=== PATIENT | female | born 1960 | race Caucasian/White ===

== ENCOUNTER 2022-12-27 10:53 | Outpatient (REF) | payer OTHER, SELFPAY ==
[2022-12-27 12:51] LABS: Erythrocyte Sedimentation Rate 20 MM/HR (0-20)
== END 2022-12-27 10:54 | disposition home or self-care (01) ==
LOC: HO.LAB 10:53
PROVIDERS: PCP Internal Medicine; Visit Provider Psychiatry & Neurology Neurology
DX: G43.009 Migraine without aura, not intractable, without status migrainosus (principal)
CPT/HCPCS: 36415; 85652

== ENCOUNTER 2025-04-09 10:19 | Outpatient (AMB) | payer OTHER, SELFPAY ==
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
--- OUTSIDE RECORDS SUMMARY | 2025-04-09 11:49 | XMS_ITS | Clinical Summary ---
Demographics Address [address] [place] [address] Mobile Phone Home Phone Phone Home Phone Work Phone Email Address Preferred Language en Marital Status Single Yazdanism Affiliation Unknown Race White Ethnic Group Not or Lati no Author Organization [address] Address [address] [place] [phone] Phone Care Team Providers Care Manager Employment Name Role Phone Marisol Soto MD Primary Care Provider Allergies Active Allergy Reactions Criticality Noted Date Comments Lisinopril 02/06/2019 Other 01/07/2014 Penicillins Anaphylaxis High 05/04/2009 Medications acetaminophen (TYLENOL 8 HOUR) 650 mg 8 hr tablet Take 1 Tablet by mouth every 8 hours as needed for Pain. 4 Active albuterol HFA (PROAIR HFA ; PROVENTIL HFA ; VENTOLIN HFA) 90 mcg/actuation inhaler Inhale 2 Puffs into the lungs every 4 hours as needed for Cough or Wheezing. 4 Active cyclobenzaprine (FLEXERIL) 10 mg tablet Take 1 Tablet by mouth 3 times daily as needed for Muscle spasms. 2 Active diclofenac (VOLTAREN) 1 % topical gel Apply 4 g topically 2 times daily as needed (right shoulder pain). 4 Active diclofenac (VOLTAREN) 25 mg EC tablet Take 1 Tablet by mouth 2 times daily. 4 Active fluticasone propionate (FLONASE) 50 mcg/actuation nasal spray 2 Sprays by Each Nare route daily. 4 Active sodium chloride (AYR) 0.65 % nasal drops 1 [place] by Nasal route as needed for Congestion. 4 Active SUMAtriptan (IMITREX) 50 mg tablet TAKE 1 TABLET BY MOUTH EVERY DAY NEEDED (AT LEAST 2 HOURS BETWEEN DOSES) 4 Active topiramate (TOPAMAX) 25 mg tablet TAKE 1 TABLET BY MOUTH EVERY DAY FOR 90 DAYS 3 Active blood glucose control high,low (FreeStyle Control) solution USE TO TEST BLOOD SUGARS DAILY 8 Active freestyle 28 gauge lancets Use to test blood sugar once daily 2 Active FREESTYLE LANCETS MISC To check sugars once daily E11.9 4 Active flash glucose scanning reader (FreeStyle Michael 2 Gold Bar) misc 1 Device by Does not apply route continuous. 3 Active blood sugar diagnostic (FreeStyle Lite Strips) test strip TEST BLOOD SUGAR ONCE DAILY 4 Active flash glucose sensor (FREESTYLE MICHAEL 2 SENSOR MISC) 1 Each by Does not apply route every 14 days. 3 Active BD Althea 2nd Gen Pen Needle 32 gauge x 5/32 needle USE TO INJECT INSULIN ONCE DAILY 100 each 2 4 Active metFORMIN (GLUCOPHAGE) 500 mg tabletIndications: Type 2 diabetes mellitus without complications ([facility] V24, [facility] V28) Take 2 tablets (1,000 mg total) by mouth 2 (two) times a day with meals. 360 tablet 1 5 Active loperamide (IMODIUM A-D) 2 mg tablet Take 1 tablet (2 mg total) by mouth if needed. 4 Active montelukast (SINGULAIR) 10 mg tablet Take 1 tablet (10 mg total) by mouth at bedtime. 90 tablet 1 5 Active indapamide (LOZOL) 2.5 mg tablet Take 1 tablet (2.5 mg total) by mouth 1 (one) time each day in the morning. 90 tablet 1 5 Active Lantus Solostar U-100 Insulin 100 unit/mL (3 mL) injection pen INJECT 34 UNITS AT BEDTIME DAILY 30 mL 2 04/04/202 5 Active loratadine (CLARITIN) 10 mg tablet Take 1 tablet (10 mg total) by mouth 1 (one) time each day if needed for allergies. 90 tablet 1 5 Active pantoprazole (PROTONIX) 20 mg EC tablet TAKE 1 TABLET BY MOUTH EVERY DAY BEFORE BREAKFAST 90 tablet 1 5 Active atorvastatin (LIPITOR) 20 mg tablet TAKE 1 TABLET (20 MG TOTAL) BY MOUTH ONE TIME EACH DAY 90 tablet 1 5 Active budesonide-formote roL (Symbicort) 80-4.5 mcg/actuation inhaler INHALE 2 PUFFS BY MOUTH TWICE A DAY (RINSE MOUTH WITH WATER AFTER USE) 8.4 g 2 5 Active dulaglutide (Trulicity) 4.5 mg/0.5 mL pen injector injection Use 4.5mg once weekly 2 mL 5 5 Active Active Problems Problem Noted Date Diagnosed Date Class 3 severe obesity due t o excess calories with serious comorbidity and body mass index (BMI) of 45.0 to 49.9 in adult ([facility] V24, [facility] V28) 07/01/2024 Lump of skin of left upper extremity 11/29/2023 Seasonal allergies 11/29/2023 Mixed hyperlipidemia 11/29/2023 Chronic right shoulder pain 08/30/2023 Mild intermittent asthma without complication COVID-19 10/10/2022 Migraine without status migrainosus, not intract able 09/19/2022 Hypertriglyceridemia 09/19/2022 AMANDA (obstructive sleep apnea) 07/01/2021 Overview (05/22/2024): [facility] Home Sleep Apnea Test: Date 05/17/2021; Wt 300#; BMI 50; JUAN DAVID (AHI) 11, AI 4; HI 7; Unclassified apneas 0; Obstructive apneas 20; Central apneas 0; Mixed apneas 0; hypopneas 39; average oxygen saturation 93% (lowest 69% with saturations <88% for 5% or more of study) - Obstructive Sleep Apnea - mild; mostly hypopneas and obstructive apneas; with sleep related hypoventilation by 2020 home sleep apnea test. 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 Referred to neurosurgery. GERD (gastroesophageal reflux disease) 0 VIOLETTE-inhibitor cough 02/06/2019 DM (diabetes mellitus), seco ndary, with peripheral vascular complications ([facility] V24, [facility] V28) 02/06/2019 Type II diabetes mellitus ([facility] V24, [facility] V28) 07/25/2017 Venous stasis dermatitis of both lower extremiti es 07/23/2017 HTN (hypertension) 07/12/2016 Asthma 01/07/2014 High cholesterol 06/09/2011 Diverticulosis 05/04/2009 Immunizations Name Administration Dates Next Due Influenza Quadravalent, MDCK , 0.5ml, preservative free (Flucelvax) 6mo and older 05/20/2022,05/09/2019,05/06/2018 Influenza trivalent, 0.5mL ( Fluzone High-dose) 65yo and older 06/14/2012,05/03/2010 Influenza trivalent, 0.5mL, preservative free (Fluarix; FluLaval; Fluzone) ages 6mo and older (Afluria) 3 years and older 06/03/2024 Influenza trivalent, with pr eservative (Fluzone; Afluria) 6mo and older 04/30/2021,06/15/2020,06/07/2017,05/12,05/22/2011 Moderna SARS-CoV-2 COVID-19, mRNA, LNP-S, preservative free 11/20/2021,06/30/2021 Pfizer (ages 12 & older) Biv alent, COVID-19 05/20/2022 Pneumococcal conjugate 20 va lent (Prevnar 20, PCV 20) 2mo and older 07/01/2024 Pneumococcal polysaccharide 23 valent (Pneumovax 23) 2yo and older 06/07/2015 Tdap Tetanus diptheria acell ular pertussis (Boostrix; Adacel) 7yo and older 01/07/2014 Zoster recombinant (Shingrix ) 19yo and older 07/09/2021,12/21/2020 Surgical History Surgery Date Site/Laterality Comments ENDOMETRIAL ABLATION age 42 PROCEDURE: MO ENDOMETRIAL ABLTJ THERMAL W/O HYSTEROSCOPIC GUID; COMMENT: Karis Reddy TONSILLECTOMY PROCEDURE: HISTORICAL TONSILLECTOMY COLONOSCOPY 07/07/11 Viviana PROCEDURE: HISTORICAL COLONOSCOPY; COMMENT: tics; repeat in ten yrs Medical History Medical History Date Comments Diverticulosis 05/04/2009 DX:Diverticulosi s Family History Medical History Relation Name Comments Breast cancer Aunt P. AUNT-DX'D 68 paternal Breast cancer Father's side aunt Prostate cancer Maternal Grandfather Other cancer Maternal Grandmother ?? ovar breezy Coronary artery disease Mother Diabetes Mother Stroke Mother Diabetes Sister 1 Hypertension Sister 1 Diabetes Sister 2 Diabetes Sister 3 Relation Name Status Comments Aunt P. AUNT-DX'D 68 Father (Age 54) drowning Father's side Maternal Grandfather Maternal Grandmother Mother (Age 63) [place] Other Paternal Grandfather Paternal Grandmother Sister 1 Alive Sister 2 Sister 3 Social History Tobacco Use Types Packs/Day Years Used Date Smoking Tobacco: Former Cigarettes 0.8 30.6 0 08/20/1979 - 03/29/2010 Smokeless Tobacco: Never Alcohol Use Standard Drinks/Week Comments No 0 (1 standard drink = 0.6 oz pur e alcohol) Housing Instability Answer Date Recorde d Are you worried that in the next 2 months you may not have stable housing? No 06/30/2024 Food Access & Nutrition Answer Date Rec orded Do you have access to a vari ety of food including fruits and vegetables? Yes 06/30/2024 Access to Healthcare Answer Date Record ed Within the last 3 months, ho w many times did you visit the emergency department for your medical care? 0 06/30/2024 Health Literacy Answer Date Recorded How often do you need to hav e someone help you when you read instructions, pamphlets, or other written material from your doctor or pharmacy? Rarely 06/30/2024 Caregiver: How often do you need to have someone help you when you read instructions, pamphlets, or other written material from your doctor or pharmacy? Not on file 06/30/2024 Financial Risk Answer Date Recorded How hard is it for you to pa y for the very basics like food, housing, medical care, and air conditioning / heating? Somewhat hard 06/30/2024 Transportation Answer Date Recorded Has the lack of transportati on kept you from meetings, work, or from getting things needed for daily living? No Has the lack of transportati on kept you from medical appointments or from getting medications? No 06/30/2024 Social Isolation Answer Date Recorded How often do you feel lonely or isolated from th ose around you? Rarely 06/30/2024 Food Risk Answer Date Recorded Within the past 12 months we worried whether our food would run out before we got money to buy more. Never true 06/30/2024 Within the past 12 months th e food we bought just didn't last and we didn't have money to get more. Never true 06/30/2024 Dependent Care Answer Date Recorded Do you need help finding or paying for care for your loved ones. For example, child psychologist or elderly care for an older adult? No 06/30/2024 Education Answer Date Recorded Do you think completing more education or training, like finishing a GED, going to college, or learning a trade, would be helpful for you? No 06/30/2024 Employment and Income Answer Date Recor ded During the last four weeks, have you been actively looking for work? No 06/30/2024 Living Situation Answer Date Recorded What is your living situation? 1 08/30/2023 Comments Unknown Sex and Gender Information Value Date Recorded Sex Assigned at Female 06/24/2024 1:40 PM EST Legal Sex Female 10:33 PM EST Gender Identity Female 06/24/2024 1:40 PM EST Sexual Orientation Lesbian or Tam 06/24/2024 1: 40 PM EST Obstetrics History Last Filed Vital Signs Vital Sign Reading Time Taken Comments Blood Pressure 130/62 10/15/2024 10:19 AM EST Pulse 88 10/15/2024 10:19 AM EST Temperature 36.6 C (97.8 F) 10/15/2024 10:19 AM EST Respiratory Rate 12 10/15/2024 10:19 AM EST Oxygen Saturation - - Inhaled Oxygen Concentration - - Weight 121 kg (267 lb) 10/15/2024 10:19 AM EST Height 162.6 cm (5' 4 ) 10/15/2024 10:19 AM EST Body Mass Index 45.83 10/15/2024 10:19 AM EST Plan of Treatment Upcoming Encounters Date Type Department Care Team (Late st Contact Info) Description 04/14/2025 11:30 AM EDT Office Visit Adult Medicine [address] [phone] Marisol Soto MD [address] [place], [place] 07/31/2025 10:20 AM EST Office Visit Endocrinology [address] [phone] Kaylee Multani PA [address] [place], [place] Health Maintenance Due Date Last Done Comments Colorectal Cancer Screening: Stool Based Tests (FOBT/FIT) 07/29/2022 HIV Screening 07/29/2022 Cervical Cancer Screening: HPV 12/24/2023 12/23/2018 DTaP,Tdap,and Td Vaccines (2 - Td or Tdap) 01/08/2024 01/07/2014 Depression Screening 08/20/2024 06/30/2024 Diabetes: Annual Foot Exam 01/23/2025 01/24/2024 Influenza Vaccine (#1) 2025 , 05/29/2023, 05/20/2022, Additional history exists Diabetes: Annual Retina Eye Exam 04/28/2025 04/28/2024 Diabetes: Blood Sugar Control Test (HGBA1C) 06/11/2025 12/10/2024, 08/07/2024, 05/12/2024, Additional history exists Social Influencers of Health Screening 06/30/2025 06/30/2024 Diabetes: Annual Urine Albumin-Creatinine Ratio (uACR) 12/10/2025 12/10/2024, 08/07/2024, 09/19/2023 Diabetes: Annual GFR (Glomerular Filtration Rate) 12/10/2025 12/10/2024, 05/12/2024, 05/12/2024 Hypertension/CHF/CAD Annual BMP Blood Test 12/10/2025 12/10/2024, 05/12/2024, 05/12/2024 Breast Cancer Screening 03/01/2026 03/01/20 24, 03/01/2024, 01/20/2023, Additional history exists Cholesterol Screening (Lipid Panel) 12/10/2029 12/10/2024, 08/07/2024, 05/12/2024, Additional history exists Hepatitis C Screening Completed 09/17/2013 Zoster Vaccines Completed 07/09/2021, 12/21/2020 Colorectal Cancer Screening: Colonoscopy Discontinued 05/21/2024 COVID-19 Vaccine Completed 06/03/2024, 05/2023, 05/20/2022, Additional history exists Pneumococcal Vaccine: 50+ Years Completed 07/01/2024, 04/30/2021, 06/07/2015 RSV Immunization Adult Patients Completed 07/06/2024 HIB Vaccines Aged Out No longer eligi ble based on patient's age to complete this topic HPV Vaccines Aged Out No longer eligi ble based on patient's age to complete this topic Hepatitis A Vaccines Aged Out No long er eligible based on patient's age to complete this topic Hepatitis B Vaccines Aged Out No long er eligible based on patient's age to complete this topic IPV Vaccines Aged Out No longer eligi ble based on patient's age to complete this topic MMR Vaccines Aged Out No longer eligi ble based on patient's age to complete this topic Meningococcal ACWY Vaccine Aged Out N o longer eligible based on patient's age to complete this topic Meningococcal B Vaccine Aged Out No l onger eligible based on patient's age to complete this topic RSV Immunization Patients Under 20 months Aged Out No longer eligible based on patient's age to complete this topic Varicella Vaccines Aged Out No longer eligible based on patient's age to complete this topic Procedures Procedure Name Priority Date/Time Associated Diagnosis Comments MICROALBUMIN CREATININE URINE RATIO Routine 12/10/2024 11:43 AM EDT Type 2 diabetes mellitus without complication, with long-term current use of insulin ([facility] V24, [facility] V28) COMPREHENSIVE METABOLIC PANEL Routine 12/10/2024 11:43 AM EDT Type 2 diabetes mellitus with hyperglycemia, with long-term current use of insulin ([facility] V24, [facility] V28) HEMOGLOBIN A1C Routine 12/10/2024 11:43 AM EDT Type 2 diabetes mellitus with hyperglycemia, with long-term current use of insulin ([facility] V24, [facility] V28) LIPID PANEL WITH REFLEX TO DIRECT LDL Routine 12/10/2024 11:43 AM EDT Hyperlipidemia, unspecified hyperlipidemia type Type 2 diabetes mellitus without complication, with long-term current use of insulin ([facility] V24, [facility] V28) COLONOSCOPY Routine 05/21/2024 DIABETES EYE EXAM Routine 04/28/2024 SCREENING MAMMOGRAPHY BI 2-VIEW BREAST INC CAD Routine 03/01/2024 9:42 AM EDT Encounter for screening mammogram for malignant neoplasm of breast DIABETES FOOT EXAM Routine 01/24/2024 HPV Routine 12/23/2018 HEPATITIS C SCREENING Routine 09/17/2013 from Last 3 Months or Most Recently Relevant to Health Maintenance Results * (ABNORMAL) Lipid panel with reflex to direct LDL (12/10/2024 11:43 AM EDT) Cholesterol 154 0 - 200 mg/dL LAB CHEMISTRY METHOD 12/10/2024 2:39 PM EDT [facility] Triglycerides 155(H) 0 - 150 mg/dL LAB CHEMISTRY METHOD 12/10/2024 2:39 PM EDT [facility] HDL 49 >=40 mg/dL LAB CHEMISTRY METHOD 12/10/2024 2:39 PM EDT [facility] LDL Calculated 74 0 - 100 mg/dL LAB CHEMISTRY METHOD 12/10/2024 2:39 PM EDT [facility] VLDL Cholesterol Sage 31 mg/dL LAB CHEMISTRY METHOD 12/10/2024 2:39 PM EDT [facility] Non HDL Chol. (LDL+VLDL) 105 <145 mg/dL LAB CHEMISTRY METHOD 12/10/2024 2:39 PM EDT [facility] Chol/HDL Ratio 3.1 0.0 - 4.4 LAB CHEMISTRY METHOD 12/10/2024 2:39 PM EDT [facility] Blood Venous blood specimen / Unknown Venipuncture / Unknown 12/10/2024 11:43 AM EDT 12/10/2024 11:43 AM EDT Marisol Soto MD LAB BLOOD ORDERABLES Final Result Performing Organization Address City/[facility]/ZIP Co de Phone Number [facility] [address] [place] [address], [place] [phone] * Microalbumin creatinine urine ratio (12/10/2024 11:43 AM EDT) Pathologist [facility] Creatinine, Urine 243.0 mg/dL LAB CHEMISTRY METHOD 12/10/2024 3:04 PM EDT [facility] Microalb, Ur 11.6 0.0 - 29.0 mg/L LAB CHEMISTRY METHOD 12/10/2024 3:04 PM EDT [facility] Microalb/Creat Ratio 5 <30 mg/g creat LAB CHEMISTRY METHOD 12/10/2024 3:04 PM EDT [facility] Urine Urine specimen obtained by clean catch procedure / Unknown Non-blood Collection / Unknown 12/10/2024 11:43 AM EDT 12/10/2024 11:43 AM EDT Marisol Soto MD LAB URINE ORDERABLES Final Result Performing Organization Address [facility]/ZIP Co de Phone Number [facility] [address] [place] [address], [place] [phone] * (ABNORMAL) Hemoglobin A1c (12/10/2024 11:43 AM EDT) [facility] Hemoglobin A1C 8.8(H) <6.5 % LAB CHEMISTRY METHOD 12/10/2024 8:03 PM [facility] Mean Bld Glu Estim. 206 mg/dL LAB CHEMISTRY METHOD 12/10/2024 8:03 PM [facility] Blood Venous blood specimen / Unknown Venipuncture / Unknown 12/10/2024 11:43 AM EDT 12/10/2024 11:43 AM EDT us Kaylee BONNER LAB BLOOD ORDERABLES Final Resul t [facility] [address] [place] [address], [place] [phone] * (ABNORMAL) Comprehensive metabolic panel (12/10/2024 11:43 AM EDT) [facility] Sodium 137 133 - 145 mmol/L LAB CHEMISTRY METHOD 12/10/2024 2:39 PM [facility] Potassium 3.7 3.5 - 5.5 mmol/L LAB CHEMISTRY METHOD 12/10/2024 2:39 PM [facility] Chloride 104 96 - 110 mmol/L LAB CHEMISTRY METHOD 12/10/2024 2:39 PM [facility] CO2 25 21 - 32 mmol/L LAB CHEMISTRY METHOD 12/10/2024 2:39 PM [facility] Anion Gap 8 3 - 11 LAB CHEMISTRY METHOD 12/10/2024 2:39 PM [facility] Glucose 133(H) 70 - 100 mg/dL LAB CHEMISTRY METHOD 12/10/2024 2:39 PM [facility] BUN 19 5 - 25 mg/dL LAB CHEMISTRY METHOD 12/10/2024 2:39 PM [facility] Creatinine 1.04 0.50 - 1.10 mg/dL LAB CHEMISTRY METHOD 12/10/2024 2:39 PM [facility] eGFR 60 >=60 mL/min/1. 73m2 LAB CHEMISTRY METHOD 12/10/2024 2:39 PM [facility] Comment:Calculation based on the Chronic Kidney Disease Epidemiology Collaboration (CKD-EPI) equation refit without adjustment for race. BUN/Creatinine Ratio 18.3 LAB CHEMISTRY METHOD 12/10/2024 2:39 PM [facility] Calcium 9.4 8.5 - 10.5 mg/dL LAB CHEMISTRY METHOD 12/10/2024 2:39 PM [facility] AST (SGOT) 25 10 - 42 unit/L LAB CHEMISTRY METHOD 12/10/2024 2:39 PM [facility] ALT (SGPT) 45 10 - 60 unit/L LAB CHEMISTRY METHOD 12/10/2024 2:39 PM [facility] Alkaline Phosphatase 75 42 - 121 unit/L LAB CHEMISTRY METHOD 12/10/2024 2:39 PM [facility] Total Protein 7.1 6.0 - 8.0 g/dL LAB CHEMISTRY METHOD 12/10/2024 2:39 PM [facility] Albumin 3.8 3.2 - 5.0 g/dL LAB CHEMISTRY METHOD 12/10/2024 2:39 PM [facility] Total Bilirubin 0.4 0.0 - 1.4 mg/dL LAB CHEMISTRY METHOD 12/10/2024 2:39 PM [facility] Blood Venous blood specimen / Unknown Venipuncture / Unknown 12/10/2024 11:43 AM EDT 12/10/2024 11:43 AM EDT us Kaylee BONNER LAB BLOOD ORDERABLES Final Resul t [facility] [address] [place] [address], [place] [phone] * Colonoscopy (05/21/2024) Colonoscopy No interpreta tion,abstr acted Anatomical Region Laterality Modality Other us Historical Provider HEALTH MAINTENANCE Final Result * Diabetes Eye Exam (04/28/2024) Diabetes: Annual Retina Eye Exam Abstracted us Historical Provider HEALTH MAINTENANCE Final Result * SCREENING MAMMOGRAPHY BI 2-VIEW BREAST INC CAD (03/01/2024 9:42 AM EDT) Anatomical Region Laterality Modality Radiographic Joann ging 01/20/2023 9:28 AM EDT Narrative 03/03/2024 12:33 PM EDT This is a summary report. The complete report is available in the patient's medical record. If you cannot access the medical record, please contact the sending organization for a detailed fax or copy. Full field digital screening 2D C views and single view tomosynthesis mammography, reviewed with CAD and compared to previous. The breasts are composed of fatty and fibroglandular tissue. No suspicious mass, architectural distortion or suspicious calcifications are identified. IMPRESSION: : No mammographic evidence of malignancy. BIRADS 1-Negative; N. 5 year breast cancer risk assessment 1.9 % Lifetime breast cancer risk assessment 8.1 % Breast cancer risk category Low (<15%) Procedure Note Shy Rodriguez MD - 06/04/2024 This is a summary report. The complete report is available in thepatient's medical record. If you cannot access the medical record, pleasecontact the sending organization for a detailed fax or copy. Full field digital screening 2D C views and single view tomosynthesismammography, reviewed with CAD and compared to previous. The breasts arecomposed of fatty and fibroglandular tissue. No suspicious mass,architectural distortion or suspicious calcifications are identified. IMPRESSION: : No mammographic evidence of malignancy. BIRADS 1-Negative; N. 5 year breast cancer risk assessment 1.9 % Lifetime breast cancer risk assessment 8.1 % Breast cancer risk category Low (<15%) Marisol Soto MD IMG XR PROCEDURES Final Res ult * Diabetes Foot Exam (01/24/2024) Pathologist [facility] Diabetes: Annual Foot Exam Abstracted Result [facility] Historical Provider HEALTH MAINTENANCE Final Result * Cervical Cancer Screening: HPV (12/23/2018) Pathologist [facility] Cervical Cancer Screening: HPV No interpreta tion,abstr acted Result [facility] Historical Provider HEALTH MAINTENANCE Final Result * Hepatitis C Screening (09/17/2013) Pathologist [facility] Hepatitis C Screening Abstracted Historical Provider HEALTH MAINTENANCE Final Result from Last 3 Months or Most Recently Relevant to Health Maintenance Insurance 08/[address] [place] [id number] [facility] Care Teams Manager Employment Relationship Specialty Start Date End Date Marisol Soto MD [address] [place] [address] PCP - General Internal Medicine 09/04/24
--- OUTSIDE RECORDS SUMMARY | 2025-04-09 11:49 | XMS_ITS ---
Author Name [facility] Organization Unknown Care Team Organization Name Specialty Phone Email Start Date End Da te [facility] EMY WRIGHT Primary Care [email or web address] 04/26/[address] [facility] WILMAN ELY Primary Care 06/27/2022 4
== END 2025-04-09 11:02 | disposition home or self-care (01) ==
PROVIDERS: PCP Internal Medicine; Referring Provider Internal Medicine; Visit Provider Registered Nurse
DX: G43.009 Migraine without aura, not intractable, without status migrainosus (principal)
CPT/HCPCS: 99214

== ENCOUNTER → 2025-04-09 10:19 | Outpatient (BNVA) | payer OTHER, SELFPAY | PROVIDERS: PCP Internal Medicine; Referring Provider Internal Medicine; Visit Provider Registered Nurse | DX: G43.709 Chronic migraine without aura, not intractable, without status migrainosus (principal); Z79.899 Other long term (current) drug therapy | CPT/HCPCS: 99212 ==